=== PATIENT | female | born 1985 | race Caucasian/White ===

== ENCOUNTER 2023-05-17 13:51 | Emergency (ER) | payer OTHER ==
[~2023-05-17] VITALS: Ht 167.6 cm; Wt 51.7 kg
[2023-05-17 16:24] LABS: HEMATOCRIT 36.7 % (36.0-45.00); HEMOGLOBIN 12.2 g/dL (12.0-15.00); MEAN CORPUSCULAR HEMOGLOBIN 28.9 pg (27.00-32.0); MEAN CORPUSCULAR HGB CONC 33.2 g/dl (32.0-36.0); PLATELET COUNT 254 K/uL (150-450); RED BLOOD COUNT 4.21 M/uL (4.00-6.00); RED CELL DISTRIBUTION WIDTH 13.3 % (11.5-14.5)
[2023-05-17 16:42] LABS: URINE APPEARANCE Clear; URINE BILIRRUBIN Negative (NEGATIVE); URINE BLOOD Negative; URINE COLOR Yellow; URINE GLUCOSE Negative (NEGATIVE); URINE LEUKOCYTE Negative; URINE NITRATE Negative; URINE PROTEIN Negative (NEGATIVE); URINE UROBILINOGEN 0.2 E.U./dl
[2023-05-17 16:46] LABS: URINE BACTERIA 161.2 uL (0.0-1933); URINE EPITHELIAL CELLS 1.5 uL (0.0-38.8); URINE RBC 3.7 uL (0.0-20.8); URINE WBC 2.9 uL (0.0-23.2)
== END 2023-05-17 20:11 ==
LOC: ER 13:51
PROVIDERS: Nurse Practitioner Family
DX: O26.891 Other specified pregnancy related conditions, first trimester (principal); R10.2 Pelvic and perineal pain; D64.9 Anemia, unspecified; Z3A.01 Less than 8 weeks gestation of pregnancy; Z88.6 Allergy status to analgesic agent

== ENCOUNTER 2024-09-07 10:39 | Outpatient (CLI) | payer OTHER | END 2024-09-07 10:42 | disposition home or self-care (01) | LOC: PRENATAL 10:39 | PROVIDERS: ATTEND Obstetrics & Gynecology Maternal & Fetal Medicine | DX: O36.80X0 Pregnancy with inconclusive fetal viability, not applicable or unspecified (principal); Z36.82 Encounter for antenatal screening for nuchal translucency; O99.280 Endocrine, nutritional and metabolic diseases complicating pregnancy, unspecified trimester; O09.529 Supervision of elderly multigravida, unspecified trimester; Z14.8 Genetic carrier of other disease; Z3A.12 12 weeks gestation of pregnancy ==

== ENCOUNTER → 2024-10-28 13:43 | Outpatient (CLI) | payer OTHER | END | disposition home or self-care (01) | LOC: PRENATAL 13:43 | PROVIDERS: ATTEND Obstetrics & Gynecology Maternal & Fetal Medicine | DX: O44.00 Complete placenta previa NOS or without hemorrhage, unspecified trimester (principal); O99.280 Endocrine, nutritional and metabolic diseases complicating pregnancy, unspecified trimester; O09.529 Supervision of elderly multigravida, unspecified trimester; Z3A.19 19 weeks gestation of pregnancy ==

== ENCOUNTER 2025-01-25 10:13 | Outpatient (CLI) | payer OTHER | END 2025-01-25 10:16 | disposition home or self-care (01) | LOC: PRENATAL 10:13 | PROVIDERS: ATTEND Student in an Organized Health Care Education/Training Program | DX: O26.849 Uterine size-date discrepancy, unspecified trimester (principal); O36.8199 Decreased fetal movements, unspecified trimester, other fetus; O99.280 Endocrine, nutritional and metabolic diseases complicating pregnancy, unspecified trimester; O09.529 Supervision of elderly multigravida, unspecified trimester; O43.90 Unspecified placental disorder, unspecified trimester; Z3A.32 32 weeks gestation of pregnancy ==

== ENCOUNTER 2025-02-24 11:49 | Outpatient (CLI) | payer OTHER ==
[~2025-02-24] VITALS: Ht 167.6 cm; Wt 74.8 kg
[2025-02-24 11:48] VITALS: BP 98/62; O2SAT 100
[2025-02-24] MEDS ORDERED: RINGERS SOLUTION,LACTATED 1,000 ML IV SCH (12:45)
[2025-02-24] MEDS ORDERED: PRENATAL TABLE1 EAC1 PO (12:48)
[2025-02-24] MEDS ORDERED: IRON325 MG PO (12:49)
[2025-02-24] MEDS ORDERED: SYNTHROID100 MCG PO (12:49)
[2025-02-24 13:05] LABS: BASO % 0.1 % (0.1-1.2); EOS # 0.05 (0.04-0.54); EOS % 0.5 % (0.7-7.0); LYMPH # 1.84 (1.18-3.74); LYMPH % 18.3 % (19.3-53.1); MEAN PLATELET VOLUME 10.70 fl (9.4-12.4); MONO # 0.51 (0.24-0.82); MONO % 5.1 % (4.7-12.5); NEUT # 7.59 (1.56-6.13); NEUT % 75.5 % (34.0-71.1); RED CELL DISTRIBUTION WIDTH 15.9 % (11.6-14.4); URINE APPEARANCE Clear; URINE BILIRRUBIN Negative (NEGATIVE); URINE BLOOD Moderate; URINE COLOR Yellow; URINE GLUCOSE Negative (NEGATIVE); URINE KETONE Negative (NEGATIVE); URINE LEUKOCYTE Trace; URINE NITRATE Negative; URINE PROTEIN Negative (NEGATIVE); URINE UROBILINOGEN 0.2 E.U./dl
[2025-02-24 13:06] LABS: URINE BACTERIA 566.0 uL (0.0-1933); URINE EPITHELIAL CELLS 5.8 uL (0.0-38.8); URINE WBC 2.3 uL (0.0-23.2)
[2025-02-24 13:07] LABS: URINE CAST 0.00 uL (0.0-1.40); URINE RBC 1.0 uL (0.0-20.8)
[2025-02-24 13:29] LABS: INR 0.94
[2025-02-24 14:17] LABS: ALT/SGPT 54.0 U/L (12-78); AST/SGOT 37.0 U/L (15-37); BILIRUBIN TOTAL 0.35 mg/dL (0.3-1.2); BUN CREA RATIO 13.0 (7.0-25.0); CREATININE SERUM 0.6 mg/dL (0.55-1.02); GFR 110.17; GLOBULINA 3.2 G/DL (2.4-3.5); GLUCOSE FASTING 101.0 mg/dL (65-100); OSMOLALITY SERUM 278.0 MOSM/KG (275-295)
[2025-02-24 15:15] VITALS: BP 109/73
[2025-02-24] MEDS ORDERED: CITRIC ACID/SODIUM CITRATE 30 ML BLIST.PACK PO ONE (19:00)
[2025-02-24 19:44] VITALS: BP 101/66
[2025-02-24 20:25] VITALS: BP 101/66
[2025-02-25] MEDS ORDERED: LEVOTHYROXINE SODIUM 100 MCG TABLET PO SCH (06:00)
== END 2025-02-24 20:36 | disposition home or self-care (01) ==
LOC: OBS/DEL 11:49
PROVIDERS: ATTEND Obstetrics & Gynecology
DX: O46.93 Antepartum hemorrhage, unspecified, third trimester (principal); O26.849 Uterine size-date discrepancy, unspecified trimester; O36.8199 Decreased fetal movements, unspecified trimester, other fetus; O26.859 Spotting complicating pregnancy, unspecified trimester; Z3A.35 35 weeks gestation of pregnancy